=== PATIENT | female | born 1980 ===

== ENCOUNTER 2017-04-15 07:04 | Day surgery (SDC) | payer MEDICAID ==
[2017-04-15 07:43] VITALS: BMI 42.9
--- NOTE | 2017-04-15 09:40 | CP.SDSHP ---
Same Day Surgery H & P - History Proposed Procedure: colonoscopy - Previous Medical/Surgical History Endocrine/Metabolic: Diabetes Previous Surgical History: hysterectomy cholecdystectomy - Allergies Allergies: Allergies aspirin Allergy (Intermediate, Verified 04/15/17 07:42) RASH Penicillins Allergy (Intermediate, Verified 04/15/17 07:42) RASH SEAFOOD Allergy (Uncoded 04/15/17 07:42) ANGIOEDEMA - Physical Exam Vital Signs: Vital Signs 04/15/17 08:12 Temperature 97.2 F L Pulse Rate 71 Respiratory 19 Rate Blood Pressure 107/58 L O2 Sat by Pulse 99 Oximetry - Date & Time Date: 04/15/17 Time: 09:40 Short Stay Discharge - Short Stay Discharge Admitting Diagnosis/Reason for Visit: BLOOD IN STOOL / CHANGE IN BOWEL HABITS Disposition: HOME/ ROUTINE
[2017-04-15] MEDS ORDERED: Lactated Ringer's 1,000 ML IV ONE (09:45)
[2017-04-15] MEDS ORDERED: Propofol 10 mg/ml Inj (20 ML) ONE (09:46)
[2017-04-15 16:48] VITALS: BP 109/61; PULSE 71; RESP 19; TEMP 976; O2SAT 100
== END 2017-04-15 12:00 | disposition home or self-care (01) ==
LOC: C.ENDO 07:04
PROVIDERS: ATTEND Colon & Rectal Surgery
DX: R19.4 Change in bowel habit (principal); K92.1 Melena; K64.8 Other hemorrhoids
CPT/HCPCS: 45378; 84703; J2001; J2704; J7120

== ENCOUNTER 2017-05-13 10:55 | Day surgery (SDC) | payer MEDICAID ==
--- NOTE | 2017-05-13 12:00 | CP.SDSHP ---
Same Day Surgery H & P - History Proposed Procedure: hemorrhoidectomy - Previous Medical/Surgical History Endocrine/Metabolic: Diabetes Previous Surgical History: hysrectomy bladder suspension colonoscopy - Allergies Allergies: Allergies aspirin Allergy (Intermediate, Verified 04/15/17 07:42) RASH Penicillins Allergy (Intermediate, Verified 04/15/17 07:42) RASH SEAFOOD Allergy (Uncoded 04/15/17 07:42) ANGIOEDEMA - Physical Exam Vital Signs: Vital Signs 05/13/17 11:31 Temperature 97.5 F L Pulse Rate 77 Respiratory 20 Rate Blood Pressure 109/68 O2 Sat by Pulse 97 Oximetry - Date & Time Date: 05/13/17 Time: 12:00 Short Stay Discharge - Short Stay Discharge Admitting Diagnosis/Reason for Visit: THIRD DEGREE HEMORRHOIDS Disposition: HOME/ ROUTINE
[2017-05-13] MEDS ORDERED: Propofol 10 mg/ml Inj (20 ML) ONE (12:10)
[2017-05-13] MEDS ORDERED: Midazolam 2 MG/2 ML VIAL ONE (12:10)
[2017-05-13] MEDS ORDERED: Bupivacaine 0.5% Inj(30mL) ONE (12:36)
[2017-05-13] MEDS ORDERED: Clindamycin 600mg/50ml NS 0 MG/0 ML BAG IVPB ONE (12:37)
[2017-05-13] MEDS ORDERED: Lactated Ringer's 1,000 ML IV ONE (12:45)
[2017-05-13] MEDS ORDERED: Ciprofloxacin 400mg/200ml D5W 400 MG/200 ML BAG IVPB ONE (12:45)
[2017-05-13] MEDS ORDERED: Lidocaine 1% Inj (20ml) ONE (12:54)
[2017-05-13] MEDS ORDERED: Lidocaine 2% w Epi 1:100,000 Inj IJ ONE (12:55)
[2017-05-13] MEDS ORDERED: Sodium Chloride 0.9% 20 ML IV ONE (12:57)
[2017-05-13] MEDS ORDERED: HYDROmorphone 0.5 mg/0.5 ml ISec IVP PRN (13:47)
--- NOTE | 2017-05-13 13:52 | PCM.SURG1 ---
Surgeon's Initial Post Op Note - Surgeon's Notes Surgeon: Olga Automatic Winder Operator: [id number] Type of Anesthesia: General LMA Pre-Operative Diagnosis: Internal and external hemorrhoids Operative Findings: see op note Post-Operative Diagnosis: Internal and external hemorrhoids Operation Performed: Hemorrhoidectomy Specimen/Specimens Removed: hemorrhoids Estimated Blood Loss: EBL {In ML}: 20 Blood Products Given: N/A Drains Used: No Drains Post-Op Condition: Good Date of Surgery/Procedure: 05/13/17 Time of Surgery/Procedure: 13:00
[2017-05-13] MEDS ORDERED: Tramadol 25 mg PO ONE (14:00)
[2017-05-13 14:07] VITALS: O2SAT 100
[2017-05-13] MEDS ORDERED: HYDROmorphone 0.5 mg/0.5 ml ISec ONE (14:22)
[2017-05-13] MEDS ORDERED: Lactated Ringer's 500 ML IV ONE (14:45)
[2017-05-13 15:42] VITALS: BP 130/80; PULSE 72; RESP 18; TEMP 97.6
--- NOTE | 2017-05-14 05:22 | OP ---
PROCEDURE DATE: 05/13/2017 PREOPERATIVE DIAGNOSIS: Internal and external hemorrhoid with prolapse. POSTOPERATIVE DIAGNOSIS: Internal and external hemorrhoid with prolapse. PROCEDURE: Hemorrhoidectomy with internal and external and correction of mucosal prolapse. SURGEON: Dr. Lorna Espinoza. TYPE OF ANESTHESIA: General. FINDINGS: This is a 37-year-old presented with a prolapse and painful bleeding hemorrhoid. They were large internal hemorrhoids with external hemorrhoid and mucosal prolapse mostly in the right posterior midline location, right anterior and left lateral posterior location. ESTIMATED BLOOD LOSS: 20 mL. DESCRIPTION OF PROCEDURE: After satisfactory general anesthesia, the patient's perineum was prepped and draped in usual fashion. Then perianal tissue was inspirited with Marcaine 1% with epinephrine about 4 mL with large Hill-Amaya retractor in place. Two right posterior and lateral hemorrhoids were excised undermining and then closing with a running 3-0 chromic suture, advancing mucosa to correct the prolapse; thereafter, the skin level. The hemorrhoidal complex in the right anterior were excised and closed with 3-0 chromic catgut suture. The hemorrhoidal complexes in the left lateral posterior location were excised in the similar fashion advancing the mucosa and tacking it superficially to the sphincter muscle of the 3-0 chromic catgut suture at the top of the skin level. The anal canal was allowing to negotiate the Hill-Amaya retractor hemostasis needed to be complete and the perianal tissue was instilled with Marcaine 0.5% about 3 mL and Surgicel inserted and transferred to the recovery room in stable condition. Lorna Espinoza MD
== END 2017-05-13 15:52 | disposition home or self-care (01) ==
LOC: C.SDS 10:55
PROVIDERS: ATTEND Colon & Rectal Surgery
DX: K64.2 Third degree hemorrhoids (principal); K64.8 Other hemorrhoids; K62.3 Rectal prolapse
CPT/HCPCS: 45541; 46255; 82948; 88304; J0744; J1170; J2250; J2704; J3010; J7120

== ENCOUNTER 2017-05-15 17:06 | Emergency (ER) | payer MEDICAID ==
[2017-05-15 17:07] VITALS: BMI 42.9
[2017-05-15] MEDS ORDERED: Sodium Chloride 0.9% 1,000 ML IV ONE (17:42)
[2017-05-15 17:58] LABS: BASO % 0.3 % (0.0-2.0); EOS # 0.1 K/uL (0.0-0.7); EOS % 0.6 % (0.0-4.0); HEMATOCRIT 37.1 % (34.0-47.0); LYMPH # 1.5 K/uL (1.0-4.3); LYMPH % 12.3 % (20.0-40.0); MEAN CELL VOLUME 78.1 fL (81.0-99.0); MEAN CORPUSCULAR HEMOGLOBIN 25.5 pg (27.0-31.0); MEAN CORPUSCULAR HGB CONC 32.6 g/dL (33.0-37.0); MEAN PLATELET VOLUME 7.6 fL (7.2-11.7); MONO # 0.6 K/uL (0.0-0.8); MONO % 4.5 % (0.0-10.0); RED CELL DISTRIBUTION WIDTH 14.9 % (11.5-14.5); WHITE BLOOD COUNT 12.4 K/uL (4.8-10.8)
[2017-05-15 18:06] LABS: CHLORIDE 101 mmol/L (98-107); SODIUM 138 mmol/L (132-148)
--- NOTE | 2017-05-15 18:06 | C.PDOC ---
History Of Present Illness 37 y/o female presents to ED for evaluation of dizziness, lightheadedness, and left sided headache. Patient is s/p hemorrhoidectomy 3 days ago and is complaining of post surgical discomfort, complains of painful bowel movement, but no acute symptoms at this time. Notes taking Tramadol 100mg every 5 hours for the pain, reports taking 2 tablets this morning. Otherwise, denies any vision change, weakness, numbness, chest pain, shortness of breath, or fever. Time Seen by Provider: 05/15/17 17:34 Chief Complaint (Nursing): Abdominal Pain History Per: Patient History/Exam Limitations: no limitations Onset/Duration Of Symptoms: Days Current Symptoms Are (Timing): Still Present Radiation Of Pain To:: None Associated Symptoms: denies: Nausea, Vomiting, Diarrhea, Loss Of Appetite, Back Pain, Chest Pain, Constipation, Urinary Symptoms Exacerbating Factors: None Alleviating Factors: None Last Bowel Movement: Today Recent travel outside of the [place]: No Additional History Per: Patient Abnormal Vaginal Bleeding: No Past Medical History Reviewed: Historical Data, Nursing Documentation, Vital Signs Vital Signs: Last Vital Signs Temp 98.3 F 05/15/17 17:31 Pulse 100 H 05/15/17 17:31 Resp 19 05/15/17 17:31 BP 139/82 05/15/17 17:31 Pulse Ox 97 05/15/17 18:53 - Medical History PMH: Anxiety, Asthma (HOSPITALIZED 01/2016), Depression, Diabetes (type II), Gall Bladder Disease Denies: Hepatitis, Chronic Kidney Disease, Sexually Transmitted Disease Surgical History: Cholecystectomy Family History: States: Unknown Family Hx - Social History Hx Tobacco Use: No Hx Alcohol Use: No Hx Substance Use: No - Immunization History Hx Tetanus Toxoid Vaccination: No Hx Influenza Vaccination: No Hx Pneumococcal Vaccination: No Review Of Systems Except As Marked, All Systems Reviewed And Found Negative. Constitutional: Negative for: Fever, Chills Cardiovascular: Positive for: Light Headedness. Negative for: Chest Pain, Palpitations Respiratory: Negative for: Shortness of Breath Gastrointestinal: Positive for: Rectal Pain. Negative for: Nausea, Vomiting, Abdominal Pain, Diarrhea, Constipation, Melena, Hematochezia Genitourinary: Negative for: Dysuria, Frequency, Hematuria Neurological: Positive for: Headache, Dizziness. Negative for: Weakness, Numbness Physical Exam - Physical Exam Appears: Non-toxic, No Acute Distress Skin: Normal Color, Warm, Dry Head: Atraumatic, Normacephalic Eye(s): bilateral: Normal Inspection Oral Mucosa: Dry Neck: Normal ROM, Supple Chest: Symmetrical Cardiovascular: No Murmur, Other (tachycardic) Respiratory: Normal Breath Sounds, No Rales, No Rhonchi, No Wheezing Gastrointestinal/Abdominal: Normal Exam, Soft, No Tenderness, No Guarding, No Rebound Extremity: Bilateral: Atraumatic, Normal ROM Neurological/Psych: Oriented x3, Normal Speech, Normal Cognition, Other (neuro intact) ED Course And Treatment - Laboratory Results Result Diagrams: 05/15/17 17:55 05/15/17 17:55 Lab Interpretation: No Acute Changes O2 Sat by Pulse Oximetry: 97 (RA) Pulse Ox Interpretation: Normal Progress Note: Plan: Blood work. Patient was given IV fluids, and Tylenol. 6: 50 Feels slightly better but still has left sided headache with photophobia. Reglan and Decadron ordered. Reevaluation Time: 19:58 Reassessment Condition: Improved (after IV reglan and Decadron) Disposition Counseled Patient/Family Regarding: Studies Performed, Diagnosis, Need For Followup - Disposition Referrals: Armando Zhao MD [Staff Provider] - Disposition: HOME/ ROUTINE Disposition Time: 19:59 Condition: IMPROVED Instructions: Acute Headache (ED) Forms: [facility] (Belarusian) - Clinical Impression Clinical Impression: Headache - Scribe Statement The provider has reviewed the documentation as recorded by the Scribjose Chadwick All medical record entries made by the Scribe were at my direction and personally dictated by me. I have reviewed the chart and agree that the record accurately reflects my personal performance of the history, physical exam, medical decision making, and the department course for this patient. I have also personally directed, reviewed, and agree with the discharge instructions and disposition.
[2017-05-15 18:07] LABS: POTASSIUM 4.4 mmol/L (3.6-5.2)
[2017-05-15 18:09] LABS: ALB/GLOB RATIO 1.1 (1.0-2.1); ALKALINE PHOSPHATASE 83 U/L (38-126); ALT/SGPT 31 U/L (9-52); AST/SGOT 19 U/L (14-36); BILIRUBIN,TOTAL 0.6 mg/dL (0.2-1.3); BLOOD UREA NITROGEN 6 mg/dL (7-17); CALCIUM 8.1 mg/dl (8.6-10.4); CARBON DIOXIDE 25 mmol/L (22-30); GFR AFRICAN-AMERICAN > 60; GLUCOSE,RANDOM 107 mg/dL (65-105); TOTAL PROTEIN 7.1 g/dL (6.3-8.3)
[2017-05-15] MEDS ORDERED: Sodium Chloride 0.9% 250 ML IV ONE (18:27)
[2017-05-15] MEDS ORDERED: Dexamethasone 4 mg/1 ml IVP STA (18:52)
[2017-05-15] MEDS ORDERED: Dexamethasone 4 mg/1 ml ONE (19:01)
[2017-05-15 20:13] VITALS: BP 118/63; PULSE 60; RESP 17; TEMP 98.8; O2SAT 98
== END 2017-05-15 20:13 | disposition home or self-care (01) ==
LOC: C.ER 17:06
DX: R51 Headache (principal)
CPT/HCPCS: 80053; 85025; 96361; 96365; 96375; 99285; J1100; J2765; J7040

== ENCOUNTER 2017-09-30 12:56 | Emergency (ER) | payer SELFPAY ==
[2017-09-30 12:56] VITALS: BMI 42.9
[2017-09-30 13:01] VITALS: TEMP 98.4; O2SAT 99
[2017-09-30 13:32] VITALS: RESP 18
[2017-09-30] MEDS ORDERED: Albuterol-Ipratrop 3 mg / 0.5 (3 ml) UD IH STA (14:02)
[2017-09-30 14:17] VITALS: BP 106/57; PULSE 86
[2017-09-30] MEDS ORDERED: Albuterol-Ipratrop 3 mg / 0.5 (3 ml) UD ONE (14:18)
--- NOTE | 2017-09-30 14:24 | RAD ---
HISTORY: Cough. Right sided pain. COMPARISON: Chest x-ray performed 05/04/17. TECHNIQUE: Chest PA and lateral FINDINGS: Examination limited by habitus. LUNGS: No focal consolidation. Please note that chest x-ray has limited sensitivity for the detection of pulmonary masses. PLEURA: No significant pleural effusion identified. No definite pneumothorax . CARDIOVASCULAR: The cardiomediastinal silhouette appears within normal limits of size. OSSEOUS STRUCTURES: No acute osseous abnormality identified. VISUALIZED UPPER ABDOMEN: Unremarkable. OTHER FINDINGS: None. IMPRESSION: No focal consolidation, significant pleural effusion, or definite pneumothorax identified.
[2017-09-30 14:34] LABS: SQUAMOUS EPITHIAL 4 /hpf (0-5); URINE BACTERIA RARE (<OCC); URINE BILIRUBIN NEGATIVE (NEGATIVE); URINE BLOOD NEGATIVE (NEGATIVE); URINE CLARITY Clear (Clear); URINE COLOR Yellow (YELLOW); URINE GLUCOSE (UA) NORMAL (Normal); URINE LEUKOCYTE ESTERASE NEG Leu/uL (Negative); URINE NITRATE NEGATIVE (NEGATIVE); URINE PROTEIN NEGATIVE (NEGATIVE); URINE UROBILINOGEN NORMAL mg/dL (0.2-1.0)
--- NOTE | 2017-09-30 15:01 | C.PDOC ---
Time Seen by Provider: 09/30/17 13:13 Chief Complaint (Nursing): Cough, Cold, Congestion History Per: Patient Onset/Duration Of Symptoms: Days (3) Current Symptoms Are (Timing): Still Present Location Of Pain: Other (Right side of chest/back) Associated Symptoms: Fever, Cough, Nasal Congestion Severity: Moderate Recent travel outside of the [place]: No Additional History Per: Prior Records Past Medical History Reviewed: Historical Data, Nursing Documentation, Vital Signs Vital Signs: Last Vital Signs Temp 98.4 F 09/30/17 12:59 Pulse 86 09/30/17 14:16 Resp 18 09/30/17 14:16 BP 106/57 L 09/30/17 14:16 Pulse Ox 99 09/30/17 14:16 - Medical History PMH: Anxiety, Asthma (HOSPITALIZED 01/2016), Depression, Diabetes (type II) Surgical History: Cholecystectomy Other Surgeries: Hysterectomy Family History: States: Unknown Family Hx - Social History Hx Tobacco Use: Yes Hx Alcohol Use: No Hx Substance Use: Yes - Immunization History Hx Tetanus Toxoid Vaccination: No Hx Influenza Vaccination: No Hx Pneumococcal Vaccination: No Review Of Systems Except As Marked, All Systems Reviewed And Found Negative. Constitutional: Negative for: Weakness Respiratory: Positive for: Cough. Negative for: Hemoptysis, Sputum Gastrointestinal: Negative for: Vomiting, Diarrhea Genitourinary: Negative for: Dysuria, Hematuria Musculoskeletal: Negative for: Neck Pain, Leg Pain Skin: Negative for: Rash Neurological: Negative for: Weakness, Numbness Physical Exam - Physical Exam Appears: Non-toxic, No Acute Distress Skin: Normal Color, Warm, Dry, No Rash Head: Atraumatic, Normacephalic Eye(s): bilateral: Normal Inspection, PERRL, EOMI Neck: Normal ROM, Supple Cardiovascular: Rhythm Regular Respiratory: No Accessory Muscle Use, Wheezing (mild intermittent, scattered) Gastrointestinal/Abdominal: Soft, No Tenderness Back: No CVA Tenderness Extremity: Normal ROM, No Pedal Edema, No Calf Tenderness Neurological/Psych: Oriented x3, Normal Motor, Normal Sensation ED Course And Treatment - Laboratory Results Interpretation Of Abnormal: U/A normal ECG: Interpreted By Me, Viewed By Me ECG Rhythm: Sinus Rhythm ECG Interpretation: No Acute Changes Rate From EC O2 Sat by Pulse Oximetry: 99 Pulse Ox Interpretation: Normal - Radiology CXR: Viewed By Me, Read By Radiologist CXR Interpretation: Yes: No Acute Disease Progress Note: Lungs clear. Reassessment Condition: Improved Progress - Interventions Interventions:: Observation - Medications Administered Oral: Acetaminophen Inhaled nebulized: Anticholinergic, Beta-2 agonist - Data Reviewed Data Reviewed: Lab, Diagnostic imaging, EKG, Old records - Patient Status Patient status: Mostly improved - Continuity of Care Discussed patient case with:: Patient, ED Nurse - Patient Plan Patient Plan: Discharge, F/U with PCP, Continue present meds Medical Decision Making Medical Decision Making: PERC rule negative. Disposition Counseled Patient/Family Regarding: Studies Performed, Diagnosis, Need For Followup, Rx Given, Smoking Cessation - Disposition Referrals: Armando Zhao MD [Staff Provider] - Disposition: HOME/ ROUTINE Disposition Time: 15:03 Condition: IMPROVED Additional Instructions: Follow up with your doctor. Return to the ER if you develop high fever, lethargy , shortness of breath, worsening of symptoms or if you have any other concerns. Prescriptions: Acetaminophen [Tylenol Extra Strength] 2 tab PO Q6 PRN #30 tablet PRN Reason: Pain, Moderate (4-7) Albuterol HFA [Ventolin HFA 90 mcg/actuation (8 g)] 2 puff IH Q4 PRN #1 unit PRN Reason: Wheezing Benzonatate 200 mg PO TID PRN #30 capsule PRN Reason: Cough Instructions: Cold Symptoms (ED) Forms: General Discharge Instructions - Clinical Impression Clinical Impression: URI (upper respiratory infection), Right-sided chest wall pain
--- NOTE | 2017-10-03 09:16 | CARD ---
APPROVED REPORT EKG Measurement Heart [id number] <Conclusion> Normal sinus rhythm Normal ECG
== END 2017-09-30 15:26 | disposition home or self-care (01) ==
LOC: C.ER 12:56
DX: J06.9 Acute upper respiratory infection, unspecified (principal); R07.89 Other chest pain; E11.9 Type 2 diabetes mellitus without complications; Z87.891 Personal history of nicotine dependence